=== PATIENT | female | born 2000 | race Hispanic/Latino ===

== ENCOUNTER 2021-06-04 22:51 | Inpatient (IN) | payer OTHER ==
[~2021-06-04] VITALS: Ht 162.6 cm; Wt 74.8 kg
[2021-06-04 23:24] VITALS: BP 134/81
[2021-06-04] MEDS ORDERED: PRENTAB9 PO (23:27)
[2021-06-04] MEDS ORDERED: ACET-683 PO (23:27)
[2021-06-05] VITALS (51 sets, daily range): BP systolic 107–169; BP diastolic 46–106
[2021-06-05] MEDS ORDERED: OXYTOCIN DRIP 30 UNITS in IV 1 EA IV PRN (00:55)
[2021-06-05] MEDS ORDERED: LIDOCAINE 1% MDV 20ML VIAL INFIL PRN (00:55)
--- NOTE | 2021-06-05 01:03 | HPEPDOC ---
Obstetrical History & Physical General Date of Admission Jun 05, 2021 at 00:46 History of Present Illness Ms. Box is a 21yo at 39+6 presenting to triage in labor. Denied VB, LOF, decreased FM. Otherwise denied a 12 point ROS. Dating Final EDC: Jun 06, 2021 Antepartum Course Pre- weight (lbs.): 122 Admission Weight (lbs.): 167 Change in Weight (lbs.): 45 Past Medical History [employer] History: History of STD Past Medical History Medical History 1. excessive weight gain 45# 2. anxiety 3. chlamydia in 1T 4. varicella and hepatitis B non-immune 5. history of marijuana use Surgical History: Denies/None Family History Significant Family History: No pertinent family hx Social History Marital Status: Family situation: Spouse/partner home Psychosocial History: Anxiety * Smoker: non-smoker Alcohol: Denies Drugs: denies Imunizations Tdap status: current Allergies Coded Allergies: No Known Allergies (Unverified , 06/04/21) Medications Scheduled Acetaminophen (Acetaminophen) 500 Mg Tablet, 2 TAB PO Q6H No.137/Iron/Folic Acd ( Vitamin Tablet) 1 Each Tablet, 1 TAB PO DAILY Physical Examination Physical Examination GENERAL: Alert and oriented times three. BREAST: . ABDOMEN: Gravid and non-tender to touch. FETUS: Is vertex (VTX) by sterile vaginal examination (SVE), fetus is vertex (VTX) by US HEART RATE: Regular rate and rhythm. LUNGS: Clear to auscultation (CTA). EXTREMITIES: No edema. No clonus. Vital Signs/I&O Vital Signs Date Time Temp Pulse Resp B/P (MAP) Pulse Ox O2 Delivery O2 Flow Rate FiO2 06/04/21 23:24 98.9 85 18 134/81 (98) Laboratory Data 24H LABS Laboratory Tests 2 06/05/21 00:55: Serology Scanned Report Hepatitis B Testing Urine Culture: No Growth Pertinent Laboratoy Data Blood Type: O+ RBC Antibody Screen: Negative HIV: Negative Hepatitis B: Negative Rapid Plasma Reagin: Nonreactive Rubella: Immune Varicella: Nonreactive Chlamydia/Gonorrhea: Positive Quad Screen Test: Negative Cystic Fibrosis: Negative Glucose Tolerance Test: 86 Anatomy Ultrasound Placenta Location: Anterior Normal Anatomy: Yes Estimated Weight (grams): 3300 Vaginal Examination Dilation: 5 cm Effacement: 90% Station: -2 Cervical Consistency: Soft Cervical Position: Middle Presentation: Cephalic presentation (by US) Assessment Variability: Moderate Accelerations: Positive Decelerations: None Tocometer Contractions: Yes Frequency: regular Multi-drug resistant Organism: No history of MDRO Assessment/Plan Assessment Ms. Box is a 21yo at 39+6 presenting to triage in labor. VS normal. CAT I NST reactive. SVE /-2. Plan to reassess in 2h or sooner if clinically indicated. 1. excessive weight gain 45# 2. anxiety 3. chlamydia in 1T 4. varicella and hepatitis B non-immune 5. history of marijuana use Rh pos, GBS neg, ceph by US, EFW 3300, placenta anterior Plan Admit and orient. [employer] Att[employer] and consent. Diet: clears Group B Streptococcus (GBS) [negative]. Labs and intravenous (IV) per unit protocol. Counseled on Pitocin and induction of labor (IOL). Lactated Ringers (LR): PRN Anticipate [normal spontaneous delivery ()]. C-S as appropriate. ANA BONILLA DO Jun 05, 2021 01:02
[2021-06-05 02:33] LABS: MEAN CORPUSCULAR HEMOGLOBIN 22.2 pg (27.0-33.0); MEAN CORPUSCULAR HGB CONC 31.4 g/dl (32.0-36.5); MEAN CORPUSCULAR VOLUME 70.6 fl (80.0-96.0); PLATELET COUNT, AUTOMATED 288 10^3/uL (150-450); RED BLOOD COUNT 4.96 10^6/uL (4.00-5.40); WHITE BLOOD COUNT 12.7 10^3/uL (4.0-10.0)
[2021-06-05] MEDS ORDERED: FENTANYL 2MCG/ML ROPIVACAINE 0.2% IN 0.9% NACL 100ML IVBAG As Ordered ONE (03:47)
[2021-06-05] MEDS ORDERED: NALOXONE INJ 0.4MG/1ML VIAL (J2310 PER 1MG) IV PRN (04:00)
[2021-06-05] MEDS ORDERED: ePHEDrine SULFATE 25 MG/5 ML(5MG/ML) SYRINGE IV PRN (04:00)
[2021-06-05] MEDS ORDERED: ONDANSETRON 4MG/2ML VIAL IV PRN (04:00)
[2021-06-05] MEDS ORDERED: EPIDURAL COMMENT XX SCH (04:00)
[2021-06-05] MEDS ORDERED: REFRIGERATOR IV KEYS XX PRN (04:00)
[2021-06-05] MEDS ORDERED: LACTATED RINGER'S 1000 ML IV PRN (04:00)
[2021-06-05] MEDS ORDERED: EPIDURAL/PCA KEYS XX PRN (04:00)
[2021-06-05] MEDS ORDERED: diphenhydrAMINE 50MG/ML VIAL (J1200) IV PRN (04:00)
[2021-06-05] MEDS ORDERED: FENTANYL/ROPIVACAINE/NACL BAG 100 ML EPIDURAL SCH (04:00)
[2021-06-05] MEDS ORDERED: OXYTOCIN 30 UNITS IN 0.9% NaCl 500ML IV BAG (J2590) As Ordered ONE (07:17)
--- NOTE | 2021-06-05 08:00 | IPNPDOC ---
Obstetrical Progress Note Date of Service Jun 05, 2021 Subjective 21 yo G1 @ 39+6 who was admitted in active labor. now has epidural in place and feeling a lot of pelvic pressure. FHT: 130, Mod andre,+accels, -Decel--cat I tracng [place]: 3-12/13 SVE: 8/C/0 A/P CAT I tracing. active labor progressing appropriately. continue active management of labor. anticipate . Objective Vital Signs Date Time Temp Pulse Resp B/P (MAP) Pulse Ox O2 Delivery O2 Flow Rate FiO2 06/05/21 07:33 99 Room Air 06/05/21 07:29 98.2 91 20 126/68 (87) CARMENCITA CASTILLO MD Jun 05, 2021 08:00
[2021-06-05] MEDS ORDERED: LR 1,000 ML IV SCH (08:35)
[2021-06-05] MEDS ORDERED: METHYLERGONOVINE MALEATE 0.2 MG TAB PO PRN (10:45)
[2021-06-05] MEDS ORDERED: PROMETHAZINE 25 MG TAB PO PRN (10:45)
[2021-06-05] MEDS ORDERED: DOCUSATE SODIUM 100MG CAPSULE PO PRN (10:45)
[2021-06-05] MEDS ORDERED: ANUSOL HC CREAM 30GM TOP PRN (10:45)
[2021-06-05] MEDS ORDERED: ACETAMINOPHEN 500 MG TAB PO PRN (10:45)
[2021-06-05] MEDS ORDERED: OXYTOCIN DRIP 30 UNITS in IV 1 EA IV SCH (10:45)
[2021-06-05] MEDS ORDERED: IBUPROFEN 800 MG TAB PO PRN (10:45)
[2021-06-05] MEDS ORDERED: DIBUCAINE 1% OINTMENT 30GM TOP PRN (10:45)
[2021-06-05] MEDS ORDERED: MOM 30ML SUSPENSION UDC PO PRN (10:45)
[2021-06-05] MEDS ORDERED: RHOGAM 300 MCG (1500 IU) INJ (J2790) IM SCH (10:45)
[2021-06-05 10:52] LABS: CORD GAS O2 SAT V 49.7 %; CORD GAS PCO2 V 52.7 mmHg; CORD GAS PH V 7.174 UNITS; CORD GAS PO2 V 26.6 mmHg; CORD GAS SBC V 15.6 MEQ/L; CORD GAS TCO2 V 20.6 MEQ/L
[2021-06-05 10:53] LABS: CORD GAS ABE A -11.6; CORD GAS HCO3 A 19.2 MEQ/L; CORD GAS O2 SAT A 48.7 %; CORD GAS PCO2 A 62.5 mmHg; CORD GAS PH A 7.105 UNITS; CORD GAS PO2 A 28.2 mmHg; CORD GAS SBC A 14.6 MEQ/L; CORD GAS TCO2 A 21.1 MEQ/L
--- NOTE | 2021-06-05 10:56 | DNPDOC ---
[facility] Delivery Note Delivery Note DATE OF DELIVERY: PREDELIVERY DIAGNOSIS: 39/6 weeks' gestation and labor. 1. excessive weight gain 45# 2. anxiety 3. chlamydia in 1T 4. varicella and hepatitis B non-immune 5. history of marijuana use POST DELIVERY DIAGNOSIS: same as above PROCEDURE: Spontaneous vaginal delivery STONER HAND: Jonathan Yates MD ANESTHESIA: Epidural ESTIMATED BLOOD LOSS: 100 mL. FINDINGS: 6 pound16 ounce, 3120 female , Score 9/9, co nuchal cord times, left compound hand. DELIVERY SUMMARY: Patient is a 21-year-old 1 now para1 who was admitted to labor and delivery in active labor. She progressed to C/C/+2 and with good maternal effort delivered a viable female . The infants head delivered OA and the head was allowed to spontaneously restitute DENISE. left comound hand noted. anterior shoulders delivered with gentle downward traction followed by posterior shoulder and corpus without difficulty. Normal 3-vessel cord clamped x 2 and cut by FOB after 1 minute of delayed cord clamping. Spontaneous cry noted. Infant placed on maternal abdomen for [id number] Cord blood obtained. Placenta delivered spontaneously and inspection of the placenta demonstrated that it was intact. The cord insertion appeared normal. The uterus was cleared of all clots and debris. Fundal massage until firm. 30 units of Pitocin administered per protocol and the patient required no additional uterotonics. Inspection of cervix, p erineum, and vaginal wall revealed vaginal mucosa laceration left labial and posterior vagina both repaired with a figure of eight stich with 2-0 vicryl. small 1-2cm hematoma formed with head delivery at the perineum, stable, non expanding at the end of the procedure . Repeat uterine examination noted uterine tone to be adequate and firm. Mom and stayed in L&D in hemodynamic stable condition upon my departure. Sponge, lap and needle count correct x 2. JONATHAN [employer]BG[employer]At[employer] Staff CARMENCITA CASTILLO MD Jun 05, 2021 10:56
[2021-06-05] MEDS: ACETAMINOPHEN 500 MG TAB PO SCH ×3 (11:10→23:00)
[2021-06-05] MEDS: PRENATAL VITAMINS CHEWABLE TABLET PO SCH (11:11)
[2021-06-06] MEDS: ACETAMINOPHEN 500 MG TAB PO SCH ×4 (04:55→23:15)
[2021-06-06 06:12] VITALS: BP 117/57
[2021-06-06] MEDS: PRENATAL VITAMINS CHEWABLE TABLET PO SCH (08:51)
[2021-06-06] MEDS ORDERED: INFLUENZA QUADRIVALENT PF VACCINE 0.5ML SYRINGE IM ONE (09:00)
[2021-06-06] MEDS ORDERED: PRENATAL VITAMINS CHEWABLE TABLET PO SCH (09:00)
--- NOTE | 2021-06-06 10:01 | IPNPDOC ---
Progress Note Date of Service: Jun 06, 2021 Day#: 1 Progress Note Ms. Box is a 21yo day 1 S/P at 39+6wks S: States she is doing well. Reports pain well controlled. She is ambulating well, tolerating a regular diet, urinating without difficulty, reports normal bowel activities and has no breast or leg pain. States she is formula feeding. Lochia is diminishing. Some discomfort at perineal laceration. Reports moods are stable. Ambulating well, denies dizziness, lightheadedness. O: VS: Vital Signs Label Value Date Time Patient Temperature 98.3 degrees F 06/06/21611 Pulse 92 06/06/21611 Respiratory Rate 18 bpm 06/06/21611 Blood Pressure Assessment 117/57 (77) 06/06/21611 Source Automatic Cuff (NIBP) General: Alert. Well-appearing, in no acute distress. PSYCH: Well groomed. Appropriate affect, normal mood. Conversed easily. Neuro: Oriented to time, place, and person. RESP: Lungs clear to auscultation bilaterally without wheezes, rales or rhonchi. Unlabored breathing. CV: Normal RRR, no murmur, c/w normal . No edema to bilateral upper and lower extremities. Negative calf tenderness. Breast: Soft, filling. No erythema or tenderness. Intact nipples. ABD: Soft, non-tender. BS normal x4 quad. Fundus: Firm U-2, Fundus non-tender. Lochia: small, rubra, without odor. Perineum: well approximated with mild edema. Hematoma deflating, still with ecchymosis and tender to touch. MSK: legs without calf tenderness or edema bilaterally SKIN: Dry, intact. Ghost Writer: MBU RN A/P 21yo G[1] P[1] day [1] s/p at 39+6 wks gestation O positive/GBS negative/RI Varicella Non-Immune: will need vaccine after discharge. Normal progression, laceration healing well. Formula Feeding VSS Plans OCP for control after discharge. Continue care and comfort measures, tylenol/motrin for pain Encouraged ambulation Plan discharge home after 48hrs due to first time parent VS, I&O, 24H, Fishbone Vital Signs/I&O Vital Signs Date Time Temp Pulse Resp B/P (MAP) Pulse Ox O2 Delivery O2 Flow Rate FiO2 06/06/21 06:12 98.3 92 18 117/57 (77) Room Air 06/05/21 18:09 98 I&O- Last 24 Hours up to 6 AM 06/06/21 06:00 Intake Total 1715 ml Output Total 1275 ml Balance 440 ml Laboratory Data 24H LABS Laboratory Tests 2 06/05/21 10:36: Cord Arterial Blood pH 7.105, Cord Arterial Blood PCO2 62.5, Cord Arterial Blood PO2 28.2, Cord Arterial Blood HCO3 19.2, Cord Arterial Blood Total CO2 21.1, Cord Arterial Blood Base Excess -11.6, Cord Arterial Base Excess (Standard 14.6, Cord Arterial Bld Oxygen Saturation 48.7, Cord Venous Blood pH 7.174, Cord Venous Blood PCO2 52.7, Cord Venous Blood PO2 26.6, Cord Venous Blood HCO3 19.0, Cord Venous Blood Total CO2 20.6, Cord Venous Base Excess (Actual) -10.0, Cord Venous Base Excess (Standard) 15.6, Cord Venous Blood Oxygen Saturation 49.7 BALDOMERO RODRIGUEZ CNM Jun 06, 2021 10:01
[2021-06-06 18:11] VITALS: BP 126/76
--- NOTE | 2021-06-07 01:08 | IPNPDOC ---
Progress Note Date of Service: Jun 07, 2021 Day#: 2 Progress Note Ms. Box is a 21yo day 2 S/P at 39+6wks S: States she is doing well. Reports pain well controlled. She is ambulating well, tolerating a regular diet, urinating without difficulty, reports normal bowel activities and has no breast or leg pain. States she is formula feeding. Lochia is diminishing. Discomfort at perineal laceration has improved with dibucaine. Reports moods are stable. Ambulating well, denies dizziness, lightheadedness. O: VS: Vital Signs Label Value Date Time Patient Temperature 98.0 degrees F 06/06/211810 Pulse 85 06/06/211810 Respiratory Rate 18 bpm 06/06/211810 Blood Pressure Assessment 126/76 (93) 06/06/211810 Source Automatic Cuff (NIBP) General: Alert. Well-appearing, in no acute distress. PSYCH: Well groomed. Appropriate affect, normal mood. Conversed easily. Neuro: Oriented to time, place, and person. RESP: Lungs clear to auscultation bilaterally without wheezes, rales or rhonchi. Unlabored breathing. CV: Normal RRR, no murmur, c/w normal . No edema to bilateral upper and lower extremities. Negative calf tenderness. ABD: Soft, non-tender. BS normal x4 quad. Fundus: Firm U-2, Fundus non-tender. MSK: legs without calf tenderness or edema bilaterally SKIN: Dry, intact. A/P 21yo G 1 P 1 day 2 s/p at 39+6 wks gestation O positive/GBS negative/RI Varicella Non-Immune: will need vaccine after discharge. Normal progression, laceration healing well. Formula Feeding VSS Plans OCP for control after discharge. Discharge home today VS, I&O, 24H, Fishbone Vital Signs/I&O Vital Signs Date Time Temp Pulse Resp B/P (MAP) Pulse Ox O2 Delivery O2 Flow Rate FiO2 06/06/21 18:11 98.0 85 18 126/76 (93) 06/06/21 06:12 Room Air 06/05/21 18:09 98 BALDOMERO RODRIGUEZ CNM Jun 07, 2021 01:08
--- NOTE | 2021-06-07 01:12 | DS.PDOC ---
Discharge Summary General Date of Admission Jun 05, 2021 at 00:46 Date of Discharge Jun 07, 2021 Discharge Summary Date of Admission: 06/05/2021 Admission Diagnosis: Labor at Full Term Delivery Date: 06/05/2021 Discharge Diagnosis: Normal spontaneous vaginal delivery, term up to 40 weeks gestation [place] gestation, live infant Vaginal Laceration, Repaired Procedures: External Monitoring Epidural Vaginal Delivery Repair of Laceration Condition on Discharge: Stable Discharged to: Home Hospital Course: Ms. Box is a 21 year old G1 now P1 who delivered a viable female at 39+6 weeks gestation via spontaneous vaginal delivery after arriving to unit in spontaneous labor. A vaginal laceration was repaired following delivery. Ms. Box has had an uncomplicated course. She has remained afebrile and normotensive with diminishing lochia throughout her stay. She is ambulating well, tolerating a regular diet, urinating without difficulty, reports normal bowel activities and has no breast or leg pain. She denies headache, vision changes, RUQ pain, or nausea/vomiting. She is stable and ready for discharge. Day of discharge physical exam documented in progress note. Infant feeding at discharge is formula. Planned control is OCP, to be ordered at visit. To follow up in the [facility] in 6-8 weeks. Discharge management time Spent: <30 minutes I saw and evaluated the patient, and completed the documentation personally. -MAJ Regina Rodriguez CNM Vital Signs/I&Os Vital Signs Date Time Temp Pulse Resp B/P (MAP) Pulse Ox O2 Delivery O2 Flow Rate FiO2 06/06/21 18:11 98.0 85 18 126/76 (93) 06/06/21 06:12 Room Air 06/05/21 18:09 98 Discharge Medications Scheduled Acetaminophen (Acetaminophen) 500 Mg Tablet, 2 TAB PO Q6H, (Reported) No.137/Iron/Folic Acd ( Vitamin Tablet) 1 Each Tablet, 1 TAB PO DAILY, (Reported) Allergies Coded Allergies: No Known Allergies (Unverified , 06/04/21) REGINA RODRIGUEZ CNM Jun 07, 2021 01:12
[2021-06-07 05:08] VITALS: BP 134/76
[2021-06-07] MEDS: ACETAMINOPHEN 500 MG TAB PO SCH (06:45)
[2021-06-07] MEDS ORDERED: INFLUENZA QUADRIVALENT PF VACCINE 0.5ML SYRINGE IM ONE (09:00)
[2021-06-07] MEDS: PRENATAL VITAMINS CHEWABLE TABLET PO SCH (09:00)
== END 2021-06-07 10:25 | disposition home or self-care (01) | DRG 807 ==
LOC: M LDO 22:51 → M LDI 06-05 00:46 → M OBS 06-05 14:25
PROVIDERS: ADMIT Obstetrics & Gynecology; ATTEND Obstetrics & Gynecology
PROC: 10E0XZZ Delivery of Products of Conception, External Approach (ICD-10-PCS; principal; 2021-06-05)
PROC: 0HQ9XZZ Repair Perineum Skin, External Approach (ICD-10-PCS; 2021-06-05)
DX: O32.6XX0 Maternal care for compound presentation, not applicable or unspecified (principal); Z37.0 Single live birth; Z3A.39 39 weeks gestation of pregnancy; O26.00 Excessive weight gain in pregnancy, unspecified trimester; O70.0 First degree perineal laceration during delivery